=== PATIENT | male | born 1995 | race African-American/Black ===

== ENCOUNTER 2016-10-19 04:17 | Emergency (ER) | payer OTHER ==
[~2016-10-19] VITALS: Ht 188 cm; Wt 83.9 kg
[2016-10-19 04:31] VITALS: BP 122/68
[2016-10-19] MEDS ORDERED: IBUPROFEN 800 MG TAB PO ONE (05:50)
== END 2016-10-19 06:03 | disposition left against medical advice (07) ==
LOC: ER 04:17 → EDBD 04:17 → EDSEX 04:17 → ER 06:03
DX: M54.2 Cervicalgia (principal); M54.9 Dorsalgia, unspecified; Z53.21 Procedure and treatment not carried out due to patient leaving prior to being seen by health care provider; V49.3XXA Car occupant (driver) (passenger) injured in unspecified nontraffic accident, initial encounter; Y93.89 Activity, other specified; Y99.8 Other external cause status; Y92.89 Other specified places as the place of occurrence of the external cause
CPT/HCPCS: 72125; 72128